=== PATIENT | female | born 1995 ===

== ENCOUNTER 2017-08-11 09:57 | Inpatient (IN) | payer MEDICAID ==
[2017-08-11 10:05] VITALS: BMI 21.1
[2017-08-11 10:50] LABS: BASO # 0.1 K/uL (0.0-0.2); BASO % 0.5 % (0.0-2.0); EOS # 0.1 K/uL (0.0-0.7); EOS % 0.8 % (0.0-4.0); HEMOGLOBIN 16.4 g/dL (12.0-16.0); LYMPH # 2.1 K/uL (1.0-4.3); LYMPH % 19.3 % (20.0-40.0); MEAN CELL VOLUME 87.6 fl (81.0-99.0); MEAN CORPUSCULAR HEMOGLOBIN 29.3 pg (27.0-31.0); MEAN CORPUSCULAR HGB CONC 33.4 g/dL (33.0-37.0); MEAN PLATELET VOLUME 9.2 fl (7.2-11.7); MONO # 0.9 K/uL (0.0-0.8); MONO % 8.2 % (0.0-10.0); NEUT # 7.8 K/uL (1.8-7.0); NEUT % 71.2 % (50.0-75.0); RBC 5.61 Mil/uL (3.80-5.20); RED CELL DISTRIBUTION WIDTH 13.5 % (11.5-14.5)
--- NOTE | 2017-08-11 10:56 | ED PDOC ---
HPI: Psych/Substance Abuse Time Seen by Provider: 08/11/17 10:06 Chief Complaint (Nursing): Psychiatric Evaluation Chief Complaint (Provider): Psychiatric Evaluation History Per: EMS Onset/Duration Of Symptoms: Days Current Symptoms Are (Timing): Still Present Additional Complaint(s): 22 year old male brought by EMS after parents noted patient had experienced anxiety and panic attack related to stress. Patient was seen by PMD and [facility] for same reason within the past two days. PMHx of anxiety and post traumatic stress disorder. PMD: [place] Past Medical History Reviewed: Historical Data, Nursing Documentation, Vital Signs Vital Signs: Last Vital Signs Temp 97 F L 08/11/17 10:04 Pulse 143 H 08/11/17 10:04 Resp BP 178/110 H 08/11/17 10:13 Pulse Ox 96 08/11/17 10:04 - Medical History PMH: Anxiety, Post Traumatic Stress Disorder - Surgical History Surgical History: No Surg Hx - Family History Family History: States: Unknown Family Hx - Allergies Allergies/Adverse Reactions: Allergies Allergy/AdvReac Type Severity Reaction Status Date / Time No Known Allergies Allergy Verified 08/11/17 10:13 Review of Systems ROS Statement: Except As Marked, All Systems Reviewed And Found Negative Psych: Positive for: Anxiety, Other (Panic Attack) Physical Exam - Reviewed Nursing Documentation Reviewed: Yes Vital Signs Reviewed: Yes - Physical Exam Appears: Positive for: Uncomfortable, In Acute Distress Cardiovascular/Chest: Positive for: Regular Rate, Rhythm. Negative for: Murmur Respiratory: Positive for: Normal Breath Sounds. Negative for: Respiratory Distress Neurologic/Psych: Positive for: Alert, Oriented (x 3), Mood/Affect (Appears to be externally and internally preoccupied. Awake, anxious, agitated.). Negative for: Motor/Sensory Deficits, Other (focal deficits) - Laboratory Results Result Diagrams: 08/11/17 10:43 08/11/17 10:43 - ECG O2 Sat by Pulse Oximetry: 96 (RA) Pulse Ox Interpretation: Normal Medical Decision Making Medical Decision Making: Time: 1043 Plan: -- EKG -- Alcohol Serum -- CMP -- Drug Screen -- ED Urine -- ED Urine Dipstick -- CBC with differentials Scribe Attestation: Documented by Racheal Peter, acting as a scribe for Dr. Phong Tanner. Medically stable for psychiatric admission Provider Pennie Attestation: All medical record entries made by the [place] were at my direction and personally dictated by me. I have reviewed the chart and agree that the record accurately reflects my personal performance of the history, physical exam, medical decision making, and the department course for this patient. I have also personally directed, reviewed, and agree with the discharge instructions and disposition. Disposition - Clinical Impression Clinical Impression: Psychosis - Patient ED Disposition Is Patient to be Admitted: Yes - Disposition Disposition Time: 11:23 Condition: FAIR Forms: [employer] ([employer]ive[employer]) - Pt Status Changed To: Hospital Disposition Of: Inpatient - Admit Certification Admit to Inpatient:: After my assessment, the patient will require hospitalization for at least two midnights. This is because of the severity of symptoms shown, intensity of services needed, and/or the medical risk in this patient being treated as an outpatient. - POA Present On Arrival: None
[2017-08-11 11:00] LABS: ALB/GLOB RATIO 1.2 (1.0-2.1); ALBUMIN 4.7 g/dL (3.5-5.0); ALT/SGPT 40 U/L (9-52); AST/SGOT 31 U/L (14-36); BLOOD UREA NITROGEN 11 mg/dl (7-17); CALCIUM 10.4 mg/dL (8.4-10.2); GFR AFRICAN-AMERICAN > 60; GFR NON-AFRICAN AMERICAN > 60
--- NOTE | 2017-08-11 11:27 | CARD ---
APPROVED REPORT EKG Measurement Heart [id number] <Conclusion> Normal sinus rhythm with sinus arrhythmia Normal ECG
[2017-08-11 11:33] LABS: BARBITURATES, UR NEGATIVE (NEGATIVE); BENZODIAZEPINES, UR POSITIVE (NEGATIVE); OPIATES, UR NEGATIVE (NEGATIVE); PHENCYCLIDINE, UR NEGATIVE (NEGATIVE)
[2017-08-11] MEDS ORDERED: Magnesium Hydroxide Susp 30 ml UD PO PRN (17:53)
[2017-08-11] MEDS ORDERED: Alum-Mag Hydrox-Simethicone Susp (30 mL) PO PRN (17:53)
[2017-08-11] MEDS ORDERED: DiphenhydrAMINE 50 mg/ml Inj IM PRN (17:53)
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
[2017-08-12] MEDS ORDERED: Risperidone M tab 1 MG PO STA (09:27)
[2017-08-12 09:33] LABS: HEMOGLOBIN 16.8 g/dL (12.0-16.0); MEAN CELL VOLUME 88.7 fl (81.0-99.0); MEAN CORPUSCULAR HEMOGLOBIN 29.6 pg (27.0-31.0); MEAN CORPUSCULAR HGB CONC 33.4 g/dL (33.0-37.0); RBC 5.66 Mil/uL (3.80-5.20); RED CELL DISTRIBUTION WIDTH 13.4 % (11.5-14.5); WHITE BLOOD COUNT 9.2 K/uL (4.8-10.8)
[2017-08-12 09:54] LABS: LDL CHOLESTEROL 115 mg/dL (0-129)
[2017-08-12 10:25] LABS: ALB/GLOB RATIO 1.2 (1.0-2.1); ALBUMIN 4.8 g/dL (3.5-5.0); BLOOD UREA NITROGEN 14 mg/dl (7-17); CALCIUM 10.1 mg/dL (8.4-10.2); GFR AFRICAN-AMERICAN > 60; GFR NON-AFRICAN AMERICAN > 60
[2017-08-12 10:26] LABS: ALT/SGPT 39 U/L (9-52); AST/SGOT 28 U/L (14-36); HDL CHOLESTEROL 69 MG/DL (30-70)
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
[2017-08-12] MEDS ORDERED: Risperidone M tab 1 MG PO SCH (22:00)
[2017-08-13] MEDS: Risperidone M tab 1 MG PO SCH (08:39)
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
[2017-08-13] MEDS ORDERED: Risperidone M TAB 2 MG PO SCH (22:00)
[2017-08-14] MEDS: Risperidone M tab 1 MG PO SCH (08:47)
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
[2017-08-14] MEDS ORDERED: Risperidone M tab 1 MG PO ONE (22:00)
[2017-08-14] MEDS ORDERED: Risperidone M TAB 2 MG PO ONE (22:00)
[2017-08-15] MEDS: Risperidone M tab 1 MG PO SCH ×2 (08:30→21:06)
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
[2017-08-16] MEDS: Risperidone M tab 1 MG PO SCH ×2 (09:04→21:09)
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
[2017-08-17] MEDS: Risperidone M tab 1 MG PO SCH ×2 (09:23→21:11)
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
[2017-08-18] MEDS ORDERED: Risperidone M tab 0.5MG PO SCH (09:00)
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
[2017-08-18] MEDS: Risperidone M tab 1 MG PO SCH (21:26)
[2017-08-19 06:41] VITALS: O2SAT 99
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
[2017-08-19] MEDS: Risperidone M TAB 2 MG PO SCH (09:25)
[2017-08-19] MEDS: Risperidone M tab 1 MG PO SCH (21:08)
[2017-08-20] MEDS: Risperidone M TAB 2 MG PO SCH (09:15)
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
[2017-08-20] MEDS: Risperidone M tab 1 MG PO SCH (21:22)
[2017-08-21] MEDS: Risperidone M TAB 2 MG PO SCH (08:33)
[2017-08-21 10:01] VITALS: BP 121/78; PULSE 93; RESP 20; TEMP 96.9
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
[2017-08-21] MEDS: Risperidone M tab 1 MG PO SCH (21:30)
[2017-08-22] MEDS: Risperidone M TAB 2 MG PO SCH (09:02)
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
== END 2017-08-22 15:05 | disposition home or self-care (01) | DRG 748 ==
LOC: H.ER 09:57 → H.ERHOLD 11:24 → H.PSYCH 17:24
PROVIDERS: ADMIT Psychiatry & Neurology Psychiatry; ATTEND Psychiatry & Neurology Psychiatry
PROC: GZHZZZZ Group Psychotherapy (ICD-10-PCS; 2017-08-12)
PROC: GZHZZZZ Group Psychotherapy (ICD-10-PCS; principal; 2017-08-13)
DX: F12.959 Cannabis use, unspecified with psychotic disorder, unspecified (principal); F41.0 Panic disorder [episodic paroxysmal anxiety]; F43.10 Post-traumatic stress disorder, unspecified; Z62.810 Personal history of physical and sexual abuse in childhood; Z79.899 Other long term (current) drug therapy; Z90.49 Acquired absence of other specified parts of digestive tract; F17.210 Nicotine dependence, cigarettes, uncomplicated